=== PATIENT | female | born 1990 | race Caucasian/White ===

== ENCOUNTER 2020-11-08 01:10 | Inpatient (IN) | payer BC, MEDICAID, SELFPAY ==
[2020-11-08] VITALS (26 sets, daily range): BP systolic 93–147; BP diastolic 50–88; PULSE 58–101; RESP 18; TEMP 36–36.8; BMI 34.8
[2020-11-08 01:33] LABS: Basophils % 0.2 %; Eosinophils % 0.2 %; Hematocrit 37.5 % (37.0-47.0); Hemoglobin 12.4 g/dL (11.5-15.3); Lymphocytes # 2.9 10^3/uL (0.8-4.8); Lymphocytes % 27.8 %; Mean Corpuscular HGB Conc 33.1 g/dL (30.0-36.0); Mean Corpuscular Hemoglobin 32.2 pg (28.0-34.0); Mean Corpuscular Volume 97.4 fL (81-99); Mean Platelet Volume 10.7 fL (7.4-10.4); Monocytes # 0.7 10^3/uL (0.2-0.9); Monocytes % 6.6 %; Neutrophils # 6.76 10^3/uL (1.8-7.7); Neutrophils % 64.9 %; Nucleated Red Blood Cells % 0 %; Platelet Count 230 10^3/cmm (130-400); Red Blood Count 3.85 10^6/uL (4.1-5.3); Red Cell Distribution Width 13.8 % (12.1-15.1); White Blood Count 10.4 10^3/uL (4.0-10.0)
--- NOTE | 2020-11-08 04:01 | P.PCNOB_ITS ---
Delivery Note: Date of delivery: November 08, 2020 This 30-year-old 4 now para 4 female at 38 weeks and 2 days gestation with an EDC of 11/20/2020 had spontaneous rupture membranes at home and arrived to [facility] OB department late the evening prior to delivery. She was seen in the OB department by nursing at approximately 00 40 and after evaluation found her to have spontaneous rupture membranes this physician was called. She declined anesthesia and fairly quickly dilated to complete cervical dilatation and this physician was called at approximately 7 to 8 cm dilatation. Shortly after my arrival she dilated complete cervical dilatation with a large urge to push. She was placed in position for delivery and delivered by spontaneous vaginal delivery at 03 42. Upon delivery of the head the mouth and nose were suctioned. He was found to have a nuchal cord x1 which was too tight to unwind so unwound as the infant delivered. After delivery of the head the body delivered very easily and the infant was suctioned. The infant immediately cried well and was placed on mother's abdomen with more bulb suctioning. After approximately 1 minute the umbilical cord was clamped and then cut by the 's father. The cord had 3 blood vessels. At approximately 03 46 the placenta delivered spontaneously without problems. Inspection of the perineum and vaginal area demonstrated no lacerations with no suturing needed. With fundal massage, the vaginal vault was swept with minimal clots removed. She appears to have good hemostasis at this time. There were no complications. This male weighed 7 pounds 12 ounces with Apgars of 8 and 9 at 1 and 5 minutes respectively. Pre-Delivery Course: This patient was followed by Dr. Elias throughout her . There were no major problems or concerns throughout her . Maternal blood type was a positive with antibody negative. Rubella was immune and group B strep was negative. The remainder of the laboratory evaluation was completely normal. As stated above, she had spontaneous rupture membranes and spontaneous onset of labor at home. Delivery: Spontaneous vaginal delivery. Post-Delivery Status: Patient will be followed for routine care with adjustments made as necessary. A&P Assessment and plan (1) Normal spontaneous vaginal delivery: Patient appears to be doing very well at this time and will be followed for routine care. 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
[2020-11-08] MEDS: HYDROcodone-acetaminophen 5-325 mg Tablet PO ×3 (04:22→21:11)
[2020-11-08] MEDS: docusate sodium 100 mg Capsule PO ×2 (09:47→19:12)
[2020-11-08] MEDS: prenatal vitamin Capsule 1 CAP PO (09:47)
[2020-11-08] MEDS: ibuprofen 800 mg tablet PO ×3 (09:47→21:12)
[2020-11-08 19:25] LABS: Hematocrit 34.6 % (37.0-47.0); Hemoglobin 11.4 g/dL (11.5-15.3); Mean Corpuscular HGB Conc 32.9 g/dL (30.0-36.0); Mean Corpuscular Hemoglobin 32.8 pg (28.0-34.0); Mean Corpuscular Volume 99.4 fL (81-99); Mean Platelet Volume 10.6 fL (7.4-10.4); Platelet Count 208 10^3/cmm (130-400); Red Blood Count 3.48 10^6/uL (4.1-5.3); Red Cell Distribution Width 13.9 % (12.1-15.1); White Blood Count 11.2 10^3/uL (4.0-10.0)
[2020-11-08] MEDS: benzocaine-menthol 78 gm Canister 1 SPRAY TOPICAL (21:12)
[2020-11-09] VITALS (8 sets, daily range): BP systolic 108–132; BP diastolic 58–75; PULSE 66–99; RESP 16–18; TEMP 36–36.7; O2SAT 98–100
--- NOTE | 2020-11-09 04:32 | PM.OBGYHP ---
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 Earlier in her , she expressed a desire for permanent sterilization. We discussed her options including her alternatives. We also discussed the risks of a tubal ligation. She had no further questions and wishes to proceed. Present Details : 4 Para: 3 Labs Rubella: Immune RPR: Negative GBS: Negative Review of Systems General: Reports: 10 or more systems reviewed and unremarkable except in HPI and below Const: Reports: fatigue; Denies: fever(s) Eyes: Denies: change in vision Card: Denies: chest pain Musc: Reports: back pain Ellis/Lymph: Denies: easy bruising Medications/Allergies Allergies Allergy/AdvReac Type Severity Reaction Status Date / Time No Known Allergies Allergy Verified 11/08/20 10:02 Vitals/I&O/Wt Last Vital Signs Temp 97.3 F L 11/08/20 21:29 Pulse 72 11/08/20 21:29 Resp 18 11/08/20 03:58 BP 107/55 11/08/20 21:29 Weight last 48 hrs Weight 203 lb Weight 203 lb Physical Exam Const: COMMON NORMALS: patient oriented x3 and alert HENMT: COMMON NORMALS: moist oral mucous membranes HEAD & SCALP: normal to inspection Chest: COMMONS NORMALS: normal inspection of the chest Resp: COMMON NORMALS: clear to auscultation bilaterally AUSCULTATION: clear to auscultation bilaterally Cardio: COMMON NORMALS: regular rate and regular rhythm RATE: regular rate RHYTHM: regular rhythm GI: INSPECTION: Yes normal to inspection : UTERUS PALPATION: Yes Other OB uterine findings (Fundus about 2 cm below the umbilicus) Extremity: COMMON NORMALS: normal to inspection GENERAL: Yes edema (Trace) Neuro: COMMON NORMALS: patient oriented x3, moves all extremities and no sensory deficits noted SENSORIUM/ORIENTATION: Yes alert Psych: COMMON NORMALS: mental status grossly normal Skin: COMMON NORMALS: no rashes or lesions noted GENERAL SKIN EXAM: no rashes or lesions noted Data : 11/08/20 19:15 A&P Assessment and plan (1) Normal spontaneous vaginal delivery: Status: Acute (2) Sterilization: We once again discussed the risks of bleeding, infection we also discussed the 1 200 chance becoming again and the increased risk of ectopic . She and her have no further questions and wished to proceed. Status: Acute Attestations Medical Necessity Statement*: I anticipate routine post tubal care and she will likely be discharged home later on this morning or early afternoon. 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
[2020-11-09] MEDS: lactated ringers 1,000 ML 999 ML IV (05:20)
[2020-11-09] MEDS: famotidine 20 mg/2 mL INJ IVP (06:17)
[2020-11-09] MEDS: citric acid-sodium citrate 30 mL UDC PO (06:17)
[2020-11-09] MEDS: metoclopramide 5 mg/mL SDV 2 mL 10 MG IVP (06:18)
--- NOTE | 2020-11-09 06:34 | ANES.PREANE2 ---
Pre-Anesthetic Assessment Pre-Anesthetic Assessment: Height/Weight: Height 1.63 m Weight 92.079 kg Temp Pulse Resp BP 97.3 F L 66 18 111/58 11/08/20 21:29 11/09/20 05:23 11/08/20 03:58 11/09/20 05:23 Preop Diagnosis: Proposed Procedure: Operation Date: 11/09/20 06:50 Proposed Procedures p Bilateral Tubal Ligation(Bilateral) - Adan Elias MD Familial anesthetic complications: None Was Beta [place] taken within 24 hours: N/A Was Clonidine taken within 24 hours: N/A Last intake: NPO > 8 hrs Social: Social History: No alcohol and No tobacco Exam: Pre-Anes Outpt Exam: alert, oriented x 3, clear to auscultation bilaterally and regular rate & rhythm Airway: MP: 3 Dentition: Full Anesthetic Plan: ASA status: 2 Anesthesia: General Other: RSI, patient Risk of > 500 ml blood loss (7ml/kg in children): No Meds/Allergies Current Medications: Current Medications Generic Name Dose Route Start Last Admin Trade Name Freq PRN Reason Stop Dose Admin Hydrocodone Bitart /Acetaminophen 1 - 2 tab 11/08/20 03:58 11/08/20 21:11 Hydrocodone-Acet aminophen 5-325 Mg Tablet PO 2 tab Q6H PRN Administration MODERATE TO SEVER E PAIN Benzocaine 1 spray 11/08/20 03:58 11/08/20 21:12 Benzocaine-Menth ol 78 Gm Canister TOPICAL 1 spray PRN PRN Administration PAIN Docusate Sodium 100 mg 11/08/20 09:00 11/08/20 19:12 Docusate Sodium 100 Mg Capsule PO 100 mg BID POLLY Administration Ibuprofen 800 mg 11/08/20 09:00 11/08/20 21:12 Ibuprofen 800 Mg Tablet PO 800 mg TID POLLY Administration Multivit/ Folic Acid/Iron 1 cap 11/08/20 09:00 11/08/20 09:47 Vitamin Capsule PO 1 cap DAILY POLLY Administration PFSH Anesthesia Female Reproductive History: : 4 Data Anesthesia CBC & Chem 7: 11/08/20 19:15 Other Labs: Laboratory Results - last 48 hr 11/08/20 11/08/20 01:15 19:15 WBC 10.4 H 11.2 H RBC 3.85 L 3.48 L Hgb 12.4 11.4 L Hct 37.5 34.6 L MCV 97.4 99.4 H MCH 32.2 32.8 MCHC 33.1 32.9 RDW 13.8 13.9 Plt Count 230 208 MPV 10.7 H 10.6 H Neut % (Auto) 64.9 Lymph % (Auto) 27.8 [place] % (Auto) 6.6 Eos % (Auto) 0.2 Baso % (Auto) 0.2 Neut # (Auto) 6.76 Lymph # (Auto) 2.9 [place] # (Auto) 0.7 Eos # (Auto) 0.0 Baso # (Auto) 0.0 Nucleated RBC % (auto) 0 Nucleated RBCs # 0.0 Cardiac Studies: No Data to Display
[2020-11-09] MEDS: sodium chloride 0.9% 1,000 ML 30 ML IV (06:35)
--- NOTE | 2020-11-09 07:17 | PM.OP ---
Operative Report Date of procedure: November 09, 2020 Pre-op Diagnosis: Post-op diagnosis: same Procedure Done: minilaparotomy bilateral tubal ligation Specimens removed/disposition: Bilateral fallopian tube segments with the right segment being tagged Pathology: other (Bilateral fallopian tube segments with the right segment being tagged) Surgeon: Adan Elias Anesthesia: General Estimated blood loss (mL): 5 Complications: None Condition: stable Disposition: floor (OB) Procedure: The patient was brought back to the operating room where anesthesia was found to be adequate. 10 mL of 0.5% bupivacaine was then used to pre-anesthetize the area just inferior to the umbilicus. A #15 blade was then used to make a 3 cm transverse incision just inferior to the umbilicus. I then dissected down to the underlying subcutaneous tissue until arriving at the fascia. The fascia was then nicked with the scalpel. The fascial incision was extended manually. I identified the fundus of the uterus and followed it to the left fallopian tube. The fallopian tube was then followed to the fimbria. The tube was then ligated, cut, and cauterized in a modified Aurora fashion using 0 chromic. The right fallopian tube was then identified and followed through to the fimbria. It was ligated, cut, and cauterized in similar fashion. The right fallopian tube was tagged. Both fallopian tubes had excellent hemostasis. The fascia was reapproximated using 0 Vicryl in running stitch. The subcutaneous tissue was carefully examined and no further bleeding was noted. The skin was then reapproximated using 4-0 Vicryl in a running subcuticular stitch. A sterile dressing was placed. All counts were correct x2. The patient was moved to the recovery room in stable condition. Associated Problem List Diagnoses (1) Sterilization: (2) Normal spontaneous vaginal delivery:
--- NOTE | 2020-11-09 07:20 | PM.OBGYDC ---
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 she had unremarkable labor and spontaneous vaginal delivery by Dr. Gtz. Her course was also unremarkable. She had a bilateral tubal ligation performed. She had normal bleeding. She breast-fed well. Her pain was well controlled. There are no concerns. Information Peripartum Data: Delivery Method: Vaginal Physical Exam Narrative: EXAM NARRATIVE: The patient is alert. She appears comfortable. Her heart has a regular rate and rhythm with no murmurs appreciated. Lungs are clear to auscultation bilaterally. Her fundus is firm and below the umbilicus. Discharge Data Data Completed and Pending: Pending at discharge Category Date Time Status Hemagram Timed Lab 11/09/20 19:09 Uncollected Pathology: Surgic al [PTH] Routine Pth 11/09/20 06:55 Ordered Labs from last 24 hours 11/08/20 19:15 WBC 11.2 H RBC 3.48 L Hgb 11.4 L Hct 34.6 L MCV 99.4 H MCH 32.8 MCHC 32.9 RDW 13.9 Plt Count 208 MPV 10.6 H Vitals: Last Vital Signs Temp 98.1 F 11/09/20 07:15 Pulse 71 11/09/20 07:15 Resp 18 11/09/20 07:15 BP 113/64 11/09/20 07:15 Pulse Ox 100 11/09/20 07:15 Discharge Plan Discharge Patient Disposition: Home Condition: Stable Prescriptions: New ibuprofen 800 mg Tablet 800 mg PO TID Qty: 45 RF: 0 hydrocodone-acetaminophen 5-325 mg Tablet 1 - 2 tab PO Q6H PRN (Reason: Moderate To Severe Pain) Qty: 20 RF: 0 -U 106.5-1 mg Capsule 1 cap PO DAILY Qty: 90 RF: 0 Discharge Orders: Discharge Order (Routine); Ordered 11/09/20 Ordered By: Adan Elias Referrals: Adan Elias MD [Primary Care Provider] - 4-7 days (Please add 6-week check) Discharge Diet: Usual diet Discharge Activity: Limit activity as instructed Patient Instructions: Opioid Safety Discharge 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
[2020-11-09] MEDS: HYDROcodone-acetaminophen 5-325 mg Tablet PO (07:51)
[2020-11-09] MEDS: ibuprofen 800 mg tablet PO (10:46)
[2020-11-09] MEDS: prenatal vitamin Capsule 1 CAP PO (10:47)
--- NOTE | 2020-11-09 11:35 | PC.NURSE ---
6 week PP checkup for MondayDecember [address] Elias.
--- NOTE | 2020-11-09 17:42 | ANE.PACU2 ---
Inpatient post-anesthesia follow up: Airway intact: Yes Vital signs: Temperature 98.0 F Pulse Rate 93 Respiratory Rate 16 Blood Pressure 132/74 Pulse Oximetry 99 Oxygen Delivery Me thod Room Air Oxygen Flow Rate 8 Fraction of Inspir ed Oxygen Hydration adequate: Yes Nausea and vomiting: No Pain level: 2 Mental status: Baseline
== END 2020-11-09 12:42 | disposition home or self-care (01) | DRG 798 ==
LOC: OBGYN 10:11 → OPOB 11-11 08:18
PROVIDERS: Admitting Provider Family Medicine; PCP Family Medicine; Visit Provider Family Medicine
PROC: (CPT 58605; principal; 2020-11-09 06:30)
DX: O69.81X0 Labor and delivery complicated by cord around neck, without compression, not applicable or unspecified (principal); Z37.0 Single live birth; Z3A.38 38 weeks gestation of pregnancy; Z30.2 Encounter for sterilization
CPT/HCPCS: 12345; 36415; 59025; 59409; 83986; 85025; 85027; 88302; 99211; J0330; J1100; J2250; J2405; J2704; J2765; J3010; J3490; J7030

== ENCOUNTER 2022-07-22 14:37 | Outpatient (CLI) | payer BC, MEDICAID, SELFPAY ==
--- NOTE | 2022-07-22 14:55 | CTR_ITS ---
PROCEDURE INFORMATION: Exam: CT Abdomen With Contrast Exam date and time: 07/22/2022 3:48 PM Age: 31 years old Clinical indication: Abdominal pain; Other: Ruq pain; Patient HX: Tubal ligation 10/2020; Additional info: Ruq abdominal pain TECHNIQUE: Imaging protocol: Computed tomography of the abdomen with contrast. Radiation optimization: All CT scans at this facility use at least one of these dose optimization techniques: automated exposure control; mA and/or kV adjustment per patient size (includes targeted exams where dose is matched to clinical indication); or iterative reconstruction. Contrast material: OMNIPAQUE 350; Contrast volume: 95 ml; Contrast route: INTRAVENOUS (IV); Other protocol: This patient has received 0 known CTs and 0 known cardiac nuclear medicine studies in the 12 months prior to the current study. COMPARISON: CT abdomen pelvis w con* [id number] 03/27/2017 5:23 PM RADIATION DOSE METRICS: Total DLP (mGy-cm): 423.34 FINDINGS: Liver: Normal. No mass. Gallbladder and bile ducts: Normal. No calcified stones. No ductal dilation. Pancreas: Normal. No ductal dilation. Spleen: Normal. No splenomegaly. Adrenal glands: Normal. No mass. Kidneys and ureters: Normal. No hydronephrosis. Stomach and bowel: Visualized stomach and bowel are unremarkable. No obstruction. No mucosal thickening. Intraperitoneal space: Unremarkable. No free air. No significant fluid collection. Vasculature: Unremarkable. No abdominal aortic aneurysm. Lymph nodes: Unremarkable. No enlarged lymph nodes. Bones/joints: Unremarkable. No acute fracture. No dislocation. Soft tissues: Unremarkable. CT/CT abdomen w con* [id number] IMPRESSION: No acute findings.
[2022-07-22] MEDS: iohexol 350 mg/mL 500 mL Btl (per mL) IV (15:55)
== END 2022-07-22 14:38 | disposition home or self-care (01) ==
LOC: RAD 14:42
PROVIDERS: PCP Family Medicine; Visit Provider Family Medicine
DX: R10.11 Right upper quadrant pain (principal)
CPT/HCPCS: 74160; Q9967

== ENCOUNTER 2022-09-07 09:50 | Outpatient (CLI) | payer OTHER, BC, MEDICAID, SELFPAY ==
--- NOTE | 2022-09-07 10:18 | NM_ITS ---
WS: [id number] NUCLEAR MEDICINE HIDA SCAN CLINICAL INFORMATION: POSTPRANDIAL RUQ PAIN TECHNIQUE: Following intravenous administration of 7.0 mCi of technetium 99m mebrofenin, images of th e abdomen were obtained over the course of 60 minutes. Next, gallbladder ejection fraction was determ ined by obtaining preprandial and one-hour postprandial images of the gallbladder following oral isaac stion of Ensure. COMPARISON: Ultrasound 07/28/21 FINDINGS: Normal hepatic uptake at 5 minutes. Normal hepatic excretion. Gallbladder is visualized by 15 minutes . No evidence of acute cholecystitis. Normal common bile duct and small bowel activity. Gallbladder ejection fraction 77% within normal limits. No evidence of chronic cholecystitis. NM/NM hepatobiliary w phar* [id number] IMPRESSION: 1. No evidence of acute or chronic cholecystitis. 2. Gallbladder ejection fraction 77% within normal limits.
== END 2022-09-07 09:51 | disposition home or self-care (01) ==
LOC: RAD 09:51
PROVIDERS: PCP Family Medicine; Visit Provider Family Medicine
DX: R10.11 Right upper quadrant pain (principal)
CPT/HCPCS: 78227; A9537

== ENCOUNTER → 2023-01-09 15:16 | Outpatient (BNVA) | payer OTHER, BC, MEDICAID, SELFPAY | PROVIDERS: PCP Family Medicine; Visit Provider Family Medicine | DX: Z68.32 Body mass index [BMI] 32.0-32.9, adult (principal) | CPT/HCPCS: 80053; 80061; 83036; 84439; 84443; 85025 ==

== ENCOUNTER → 2023-04-25 08:32 | Outpatient (BNVA) | payer OTHER, BC, MEDICAID, SELFPAY | PROVIDERS: PCP Family Medicine; Visit Provider Family Medicine | DX: J30.2 Other seasonal allergic rhinitis (principal); K21.9 Gastro-esophageal reflux disease without esophagitis; Z68.32 Body mass index [BMI] 32.0-32.9, adult; F41.9 Anxiety disorder, unspecified; R10.9 Unspecified abdominal pain | CPT/HCPCS: 82785; 86003 ==